=== PATIENT | female | born 1960 | race Caucasian/White ===

== ENCOUNTER 2017-03-13 21:07 | Emergency (ER) | payer BC ==
--- NOTE | 2017-03-13 21:37 | UC ---
Bite Injury/Animal HPI - HPI Summary HPI Summary: Bitten by sisters dog at about 2015. right eyelid. - History of Current Complaint Chief Complaint: UCGeneralIllness Stated Complaint: DOG BITE EYELID Time Seen by Provider: 03/13/17 21:22 Hx Obtained From: Patient ?: No Severity Currently: Mild Severity Initially: Mild Onset/Duration: Sudden Onset Type of Bite: Pet Has Animal Been Immunized?: Yes Character: Full-Thickness Aggravating Factor(s): Nothing Alleviating Factor(s): Nothing Hx of Bite: Unprovoked Animal Available for Observation: Yes - Allergies/Home Medications Allergies/Adverse Reactions: Allergies Allergy/AdvReac Type Severity Reaction Status Date / Time No Known Allergies Allergy Verified 03/13/17 21:21 PMH/Surg Hx/FS Hx/Imm Hx Previously Healthy: Yes - Family History Known Family History: Positive: Diabetes - Social History Occupation: Employed Full-time Lives: With Family Review of Systems Respiratory: Cough Is Patient Immunocompromised?: No All Other Systems Reviewed And Are Negative: Yes Physical Exam Triage Information Reviewed: Yes Appearance: Well-Appearing, Well-Nourished, Pain Distress - mild Vital Signs Reviewed: Yes Eye Exam: Normal Neck exam: Normal Respiratory Exam: Normal Cardiovascular Exam: Normal Musculoskeletal Exam: Normal Neurological Exam: Normal Psychological Exam: Normal Skin: Positive: Other - right upper eyelid laceration Procedures - Laceration/Wound Repair 1 Location: face - right upper eyelid Description: Irregular - flap Length, Depth and Shape: flap, 3.3cm total length Betadine Prep?: No Irrigated w/ Saline (ccs): 100 Laceration/Wound Explored: clean Closure: Skin Adhesive Layer Closure?: No Sterile Dressing Applied?: No Bite Injury Course/Dx - Differential Dx/Diagnosis Differential Diagnosis/HQI/PQRI: Cellulitis, Laceration, Puncture Provider Diagnoses: Dog bite. Open wound face Discharge - Discharge Plan Condition: Stable Disposition: HOME Prescriptions: Amoxicillin/Clavulanate TAB* [Augmentin TAB 875*] 875 mg PO BID #4 tab Patient Education Materials: Animal Bite (ED), Skin Adhesive Care (ED), Amoxicillin/Clavulanate Potassium (By mouth) Referrals: No Primary Care Phys,NOPCP [Primary Care Provider] - Additional Instructions: Smoking Cessation Tricks. 1. Cut down by 1 cigarette per day every 2-3 days. Write the number of smokes for that day on the calendar. 2. Identify triggers to smoking: after meals, on the phone, in the car, with coffee, on breaks at work, etc. 3. Formulate a plan with a behavior to replace the smoking. Fireballs in the car , doodle pad on the phone, flavored creamer for the coffee, go for a walk after a meal or on break at work. 4. For stress smokes do deep breathing relaxation. Breath deep in through the nose hold the breath in for a few seconds then breath out slowly through the mouth.
[2017-03-13] MEDS ORDERED: Amoxicillin/Clavulanate TAB* 875 MG PO ONE (22:01)
== END 2017-03-13 22:17 | disposition home or self-care (01) ==
LOC: UCCORT 21:07
DX: S01.151A Open bite of right eyelid and periocular area, initial encounter (principal); W54.0XXA Bitten by dog, initial encounter; Y93.9 Activity, unspecified; Y92.9 Unspecified place or not applicable
CPT/HCPCS: 12013; 99202; A9270-GY; G0463